=== PATIENT | male | born 2000 | race Caucasian/White ===

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

== ENCOUNTER 2021-10-22 15:45 | Emergency (ER) | payer OTHER ==
[~2021-10-22] VITALS: Ht 190.5 cm; Wt 148.4 kg
[2021-10-22 15:46] VITALS: BP 143/76
[2021-10-22] MEDS ORDERED: OMEP-173 (15:53)
[2021-10-22] MEDS ORDERED: NEOSPORIN OINT 0.9 GM PKT TOP ONE (17:50)
[2021-10-22] MEDS ORDERED: LIDOCAINE 1% MDV 20ML VIAL SC ONE (17:50)
[2021-10-22] MEDS ORDERED: BOOSTRIX/ADACEL VACCINE (DIPHTH/PERTUSS/ACELL/TETANUS) 0.5ML SYR IM ONE (18:30)
== END 2021-10-22 19:10 | disposition home or self-care (01) ==
LOC: M ED 15:45
DX: S61.012A Laceration without foreign body of left thumb without damage to nail, initial encounter (principal); W26.8XXA Contact with other sharp object(s), not elsewhere classified, initial encounter; Y92.009 Unspecified place in unspecified non-institutional (private) residence as the place of occurrence of the external cause; Y93.89 Activity, other specified; Y99.9 Unspecified external cause status

== ENCOUNTER 2022-04-22 13:34 | Emergency (ER) | payer OTHER ==
[~2022-04-22] VITALS: Ht 190.5 cm; Wt 150.0 kg
[~2022-04-22 13:34] MED LIST: OMEP-173
[2022-04-22 14:42] LABS: BASO % 0.6 % (0.0-1.0); EOS # 0.1 10^3/uL (0.0-0.5); EOS % 1.5 % (0.0-3.0); HEMATOCRIT 44.3 % (42.0-52.0); HEMOGLOBIN 13.9 g/dl (13.5-17.5); LYMPH # 0.9 10^3/uL (1.5-5.0); LYMPH % 18.1 % (24.0-44.0); MEAN CORPUSCULAR HEMOGLOBIN 28.4 pg (27.0-33.0); MEAN CORPUSCULAR HGB CONC 31.4 g/dl (32.0-36.5); MEAN CORPUSCULAR VOLUME 90.6 fl (80.0-96.0); MONO # 0.4 10^3/uL (0.0-0.8); MONO % 7.3 % (2.0-8.0); NEUTROPHILS # 3.8 10^3/uL (1.5-8.5); NEUTROPHILS % 72.3 % (36.0-66.0); PLATELET COUNT, AUTOMATED 193 10^3/uL (150-450); RED BLOOD COUNT 4.89 10^6/uL (4.30-6.10); WHITE BLOOD COUNT 5.2 10^3/uL (4.0-10.0)
[2022-04-22 14:54] LABS: BLOOD UREA NITROGEN 13 MG/DL (7-18); CALCIUM LEVEL 9.3 MG/DL (8.5-10.1); CARBON DIOXIDE LEVEL 25 MEQ/L (21-32); CHLORIDE LEVEL 111 MEQ/L (98-107); CREATININE FOR GFR 0.87 MG/DL (0.70-1.30); GLOMERULAR FILTRATION RATE > 60.0 (>60); GLUCOSE, FASTING 110 MG/DL (70-100); POTASSIUM SERUM 4.7 MEQ/L (3.5-5.1); SODIUM LEVEL 142 MEQ/L (136-145)
[2022-04-22 17:55] VITALS: BP 149/70
== END 2022-04-22 18:16 | disposition home or self-care (01) ==
LOC: M ED 13:34
DX: S80.11XA Contusion of right lower leg, initial encounter (principal); V86.79XA Person on outside of other special all-terrain or other off-road motor vehicles injured in nontraffic accident, initial encounter; K21.9 Gastro-esophageal reflux disease without esophagitis; Z79.899 Other long term (current) drug therapy

== ENCOUNTER 2024-02-10 14:21 | Emergency (ER) | payer OTHER ==
[~2024-02-10] VITALS: Ht 188 cm; Wt 145.4 kg
[2024-02-10 14:50] LABS: BASO % 0.4 % (0.0-1.0); EOS # 0.1 10^3/uL (0.0-0.5); EOS % 0.7 % (0.0-3.0); HEMATOCRIT 44.9 % (42.0-52.0); HEMOGLOBIN 15.1 g/dl (13.5-17.5); LYMPH # 1.6 10^3/uL (1.5-5.0); LYMPH % 23.8 % (24.0-44.0); MEAN CORPUSCULAR HEMOGLOBIN 29.6 pg (27.0-33.0); MEAN CORPUSCULAR HGB CONC 33.6 g/dl (32.0-36.5); MONO % 14.3 % (2.0-8.0); NEUTROPHILS # 4.1 10^3/uL (1.5-8.5); NEUTROPHILS % 60.5 % (36.0-66.0); PLATELET COUNT, AUTOMATED 184 10^3/uL (150-450); WHITE BLOOD COUNT 6.8 10^3/uL (4.0-10.0)
[2024-02-10 15:01] LABS: INR 1.12; PARTIAL THROMBOPLASTIN TIME 29.2 SECONDS (24.8-34.2)
[2024-02-10 15:24] LABS: LIPASE 28 U/L (12-53)
[2024-02-10 15:26] LABS: ALBUMIN 3.9 G/DL (3.2-5.2); ALKALINE PHOSPHATASE 79 U/L (46-116); ALT/SGPT 41 U/L (7.0-40); AST/SGOT 18 U/L (<34); BILIRUBIN,DIRECT 0.2 MG/DL (<0.4); BILIRUBIN,TOTAL 0.4 MG/DL (0.3-1.2); BLOOD UREA NITROGEN 18 MG/DL (9-23); CALCIUM LEVEL 9.2 MG/DL (8.5-10.1); CARBON DIOXIDE LEVEL 24 MMOL/L (20-31); CHLORIDE LEVEL 104 MMOL/L (98-107); CK-MB VALUE MASS 5.7 NG/ML (<3.6); CREATININE FOR GFR 0.84 MG/DL (0.70-1.30); GLOMERULAR FILTRATION RATE > 60.0 (>60); GLUCOSE, FASTING 103 MG/DL (60-100); POTASSIUM SERUM 4.4 MMOL/L (3.5-5.1); SODIUM LEVEL 135 MMOL/L (136-145); TOTAL PROTEIN 6.9 G/DL (5.7-8.2)
[2024-02-10 15:27] LABS: CPK CREATINE PHOSPHOKINASE 193 U/L (46-171); MB/CK RELATIVE INDEX 2.95 (< OR =4)
[2024-02-10 16:08] LABS: ERYTHROCYTE SEDIMENTATION RATE 23 mm/hr (0-15)
[2024-02-10] MEDS: KETOROLAC 30 MG/ML 1ML VIAL IV ONE (16:23)
[2024-02-10 16:46] LABS: CK-MB VALUE MASS 6.9 NG/ML (<3.6)
[2024-02-10 16:53] LABS: MB/CK RELATIVE INDEX 3.46 (< OR =4)
[2024-02-10] MEDS: ONDANSETRON 4MG 2ML VIAL IV ONE (17:06)
[2024-02-10] MEDS: MORPHINE 4 MG/ML 1ML VIAL IV PRN (17:07)
[2024-02-10] MEDS ORDERED: ISOVUE-370 76% 100ML VIAL As Ordered ONE (17:08)
[2024-02-10] MEDS ORDERED: HOME MED LIST COMPLETE! XX SCH (17:50)
[2024-02-10] MEDS ORDERED: NITROGLYCERIN 2% OINT 1 GM *U/D* PKT TOP ONE (18:10)
[2024-02-10] MEDS: ASPIRIN 81MG CHEW TABLET PO ONE (18:46)
[2024-02-10] MEDS: HEPARIN SOD (PORCINE) 5000UNITS/ML 1ML VIAL/SYRINGE IV ONE (18:47)
[2024-02-10] MEDS: HEPARIN DRIP 25,000 UNITS in IV 1 EA IV SCH (18:47)
[2024-02-10 19:20] VITALS: BP 128/72; TEMP 97.2; O2SAT 98
== END 2024-02-10 19:23 | disposition short-term general hospital (02) ==
LOC: M ED 14:21
DX: R07.9 Chest pain, unspecified (principal); R79.89 Other specified abnormal findings of blood chemistry
CPT/HCPCS: 71045; 71275; 80048; 80076; 82550; 82553; 83690; 83880; 85025; 85610; 85652; 85730; 86140; 87486; 87581; 87633; 87798; 93005; 93306; 96365; 96374; 96375; 99285; J1885; J2405; Q9967